=== PATIENT | female | born 2005 | race Caucasian/White ===

== ENCOUNTER 2025-07-14 15:08 | Emergency (ER) | payer MEDICAID ==
[~2025-07-14] VITALS: Ht 172.7 cm; Wt 136.0 kg
[~2025-07-14 15:08] MED LIST: ALBU90AE INH; BUDE90AE3 INH; DILT30TA37 MT; PRED10TA PO; TAM75 PO
[2025-07-14] MEDS: METHYLPREDNISOLONE SOD SUCC 125MG/2ML (ACT-O-VIAL) IV ONE (16:09)
[2025-07-14 16:30] VITALS: PULSE 112; RESP 26; O2SAT 97
[2025-07-14] MEDS: IPRATROPIUM/ALBUTEROL 0.5-3(2.5)MG/3ML NEB HHN ONE (16:30)
[2025-07-14 16:58] LABS: BASOPHILS % 0.6 % (0.0-2.0); EOSINOPHILS % 0.7 % (0.0-5.0); HEMATOCRIT. 40.1 % (36.0-48.0); HEMOGLOBIN. 12.9 g/dL (12.0-16.0); LYMPHOCYTES % 19.1 % (20.0-50.0); MEAN PLATELET VOLUME 9.0 fl (7.4-10.4); MONOCYTES % 10.6 % (2.0-8.0); NEUTROPHILS % 69.0 % (40.0-76.0); PLATELET 206 x1000/uL (130-400); RED BLOOD CELL COUNT 5.12 mill/uL (4.2-5.4); RED CELL DISTRIBUTION WIDTH 17.2 % (11.6-14.6)
[2025-07-14] MEDS ORDERED: P50 MT (19:52)
[2025-07-14] MEDS ORDERED: ALBU90AE INH (19:52)
[2025-07-14] MEDS ORDERED: BUDE90AE3 INH (19:52)
[2025-07-14] MEDS ORDERED: AZIT250T12 MT (19:52)
[2025-07-14] MEDS ORDERED: BENZ200C52 MT (19:52)
[2025-07-14 19:54] VITALS: TEMP 36.8
[2025-07-14 20:27] VITALS: BP 111/71; PULSE 100; RESP 20; O2SAT 98
[2025-07-14 20:47] LABS: CREATININE 0.8 mg/dL (0.6-1.0)
[2025-07-14 20:48] LABS: UREA NITROGEN BLOOD 9 mg/dL (9-23)
== END 2025-07-14 20:34 | disposition home or self-care (01) ==
LOC: ER 15:08 → CMPBEDREQ 07-15 08:45
DX: J45.901 Unspecified asthma with (acute) exacerbation (principal); Z79.899 Other long term (current) drug therapy; Z20.822 Contact with and (suspected) exposure to COVID-19
CPT/HCPCS: 80048; 85025; 36415; 71045; 94640; 99285; 87426; J2919; Z7610 ×3